=== PATIENT | female | born 1985 | race Caucasian/White ===

== ENCOUNTER 2017-09-15 22:08 | Outpatient (CLI) | payer OTHER ==
[~2017-09-15] VITALS: Ht 154.9 cm; Wt 81.8 kg
[~2017-09-15 22:08] MED LIST: PRENTAB26 PO
[2017-09-15 22:47] VITALS: Ht 154.9 cm; Wt 81.8 kg
--- NOTE | 2017-09-15 22:58 | Progress Note ---
Progress Note Date of Service Sep 15, 2017. Progress Note Here at 35 weeks to rule out rupture Amnisure is negative FHT Cat 1 with irregular contractions will d/c home
== END 2017-09-15 23:16 | disposition home or self-care (01) ==
LOC: C.LD 22:08 → C.OPB 22:08
PROVIDERS: ATTEND Obstetrics & Gynecology
DX: O62.9 Abnormality of forces of labor, unspecified (principal); Z3A.35 35 weeks gestation of pregnancy

== ENCOUNTER 2017-10-27 07:57 | Inpatient (IN) | payer OTHER ==
[~2017-10-27] VITALS: Ht 154.9 cm; Wt 83.2 kg
[2017-10-27 08:55] VITALS: Ht 154.9 cm; Wt 83.2 kg
[2017-10-27] MEDS ORDERED: LACTATED RINGER'S 1000ML 1,000 ML IV PRN (09:12)
[2017-10-27] MEDS ORDERED: LACTATED RINGER'S 1000ML 1,000 ML IV SCH ×2 (09:12→19:47)
--- NOTE | 2017-10-27 09:35 | Progress Note ---
Progress Note Date of Service Oct 27, 2017. Progress Note Admit Note 32 F P2002 at 41.1 weeks admitted for induction of labor for post-dates. GBS is negative. FHT Cat 1. Cervix is finger tip/50/-3/vertex/intact/posterior/ firm. EFW 8.5 lbs. Cervidil 25 mcg placed vaginally for cervical ripening.
[2017-10-27] MEDS ORDERED: MISOPROSTOL 25 MCG TAB PV ONE (09:45)
[2017-10-27 09:52] LABS: HEMATOCRIT 36.1 % (37-47); MEAN CELL VOLUME 95.3 fL (80-100); MEAN CORPUSCULAR HEMOGLOBIN 34.3 pg (25-34); MEAN PLATELET VOLUME 10.2 fL (7.4-10.4); PLATELET COUNT 175 K/uL (130-400); RED CELL DISTRIBUTION WIDTH CV 13.6 % (11.5-14.5); WHITE BLOOD COUNT 9.27 K/uL (4.8-10.8)
[2017-10-27] MEDS ORDERED: BUPIVACAINE 0.25% 30 ML VIAL ONE (17:34)
[2017-10-27] MEDS ORDERED: FENTANYL 2MCG/ML ROPIV 1.25MG/ML 100ML BAG EPI ONE (17:35)
[2017-10-27] MEDS ORDERED: EpHEDrine SULFATE INJ 50 MG/ML AMP ONE (17:35)
[2017-10-27] MEDS ORDERED: FENTANYL CITRATE INJ 50 MCG/1 ML 2 ML VIAL ONE (17:36)
[2017-10-27] MEDS ORDERED: LACTATED RINGER'S 1000ML 500 ML IV PRN (19:08)
[2017-10-27] MEDS ORDERED: NALOXONE HCL INJ 1 MG in SODIUM CHLORIDE 0.9% 1000ML 1,000 ML IV PRN (19:08)
[2017-10-27] MEDS ORDERED: NALOXONE HCL INJ 0.4 MG/1 ML VIAL/CARP IV PRN (19:15)
[2017-10-27] MEDS ORDERED: EpHEDrine SULFATE INJ 50 MG/ML AMP IV PRN (19:15)
[2017-10-27] MEDS ORDERED: ONDANSETRON INJ 2 MG/ML 2 ML VIAL IV PRN (19:15)
[2017-10-27] MEDS ORDERED: NALBUPHINE HCL INJ 10 MG/ML AMP IV PRN (19:15)
[2017-10-27] MEDS ORDERED: DiphenhydrAMINE HCL 50 MG/ML VIAL IV PRN (19:15)
[2017-10-27] MEDS ORDERED: FENTANYL 2MCG/ML ROPIV 1.25MG/ML 100ML BAG EPI PRN (19:15)
[2017-10-27] MEDS ORDERED: OXYTOCIN 30 UNITS/500ML NSS IV ONE (19:35)
--- NOTE | 2017-10-27 19:52 | Vaginal Delivery Summary ---
Vaginal Delivery Summary live male over intact perineum SOHAN with Apgars 7/8 weight pending. Delayed cord clamping followed by cord blood and spontaneous delivery of intact placenta. No tears. EBL 200 ml. Final sponge and instrument count are correct. Mom and baby stable.
[2017-10-27] MEDS ORDERED: OXYTOCIN 30 UNITS/500ML NSS IV PRN (20:00)
[2017-10-27] MEDS ORDERED: BENZOCAINE 20% AER SPR 82.5 GM CAN EXT PRN (20:00)
[2017-10-27] MEDS ORDERED: OXYCODONE/ACETAMINOPHEN 5-325 TAB PO PRN (20:00)
[2017-10-27] MEDS ORDERED: DIPHTHERIA/TETANUS/PERTUSSIS 0.5 ML SYR/VIAL IM. ONE (20:00)
[2017-10-27] MEDS ORDERED: ACETAMINOPHEN 325 MG TAB PO PRN (20:00)
[2017-10-27] MEDS ORDERED: MEASLES, MUMPS & RUBELLA VIRUS VIAL SQ. ONE (20:00)
[2017-10-27] MEDS ORDERED: SUPERCREAM 0.870 % 15GM JAR EXT PRN (20:00)
[2017-10-27] MEDS ORDERED: LANOLIN OINT EXT PRN (20:00)
[2017-10-27] MEDS ORDERED: HYDROCORTISONE ACETATE 25 MG SUPP PR PRN (20:00)
--- NOTE | 2017-10-27 20:45 | Anesthesia Procedure Note ---
Anesthesia Epidural Removal Nt Date & Time Oct 27, 2017 at 20:45 Notes Mental Status: alert / awake / arousable, participated in evaluation Nausea / Vomiting: adequately controlled Pain: adequately controlled Airway Patency, RR, SpO2: stable & adequate BP & HR: stable & adequate Hydration State: stable & adequate Neuraxial Anesthesia: was administered, sensory block is resolving Anesthetic Complications: no major complications apparent, pt satisfied with anesthetic care Epidural: removed without complications, with tip intact
[2017-10-27] MEDS: IBUPROFEN 600 MG TAB PO PRN (22:57)
[2017-10-27 23:00] VITALS: BP 114/71; PULSE 93; TEMP 36.6
[2017-10-28] MEDS: IBUPROFEN 600 MG TAB PO PRN ×4 (03:17→19:57)
[2017-10-28 03:30] VITALS: BP 110/69; PULSE 67; TEMP 36.4
[2017-10-28 06:42] LABS: HEMATOCRIT 33.5 % (37-47); HEMOGLOBIN 11.6 g/dL (12.0-16.0)
[2017-10-28 07:25] VITALS: BP 119/78; PULSE 73; TEMP 36.5; O2SAT 98
--- NOTE | 2017-10-28 08:43 | OB/GYN Progress Note ---
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 Subjective conversation w/ patient, physical exam Ambulation: ambulating normally Voiding: no voiding problems Passing Gas: Yes Diet Tolerance: Regular Diet Lochia: Moderate Feeding Type: Breast Feeding Review of Systems Constitutional: No fever, No chills, No sweats, No weight loss, No weakness, No fatigue, No problem reported Respiratory: No cough, No sputum, No wheezing, No shortness of breath, No dyspnea on exertion, No dyspnea at rest, No hemoptysis, No problem reported Cardiac: No chest pain, No orthopnea, No PND, No edema, No claudication, No palpitations, No problem reported Breast: No see HPI, No breast lump, No change in shape, No nipple discharge, No breast pain, No problem reported Abdomen: No pain, No nausea, No vomiting, No diarrhea, No constipation, No GI bleeding, No problem reported Female : No see HPI, No dysuria, No urinary frequency, No hematuria, No incontinence, No abnormal vaginal bleeding, No vaginal discharge, No problem reported Objective Vital Signs Date Time Temp Pulse Resp B/P (MAP) Pulse Ox O2 Delivery O2 Flow Rate FiO2 10/28/17 03:30 36.4 67 20 110/69 (83) Room Air 10/27/17 23:00 Room Air 10/27/17 23:00 36.6 93 19 114/71 (85) Room Air Physical Exam General Appearance: WELL-APPEARING, WD/WN, NO APPARENT DISTRESS Respiratory/Chest: chest non-tender, lungs clear, normal breath sounds Cardiovascular: regular rate, rhythm, no edema, no gallop Abdomen: normal bowel sounds, non tender, soft Fundus: Firm Extremities: normal range of motion, non-tender, normal inspection Laboratory Results Last 24 Hours Test 10/27/17 09:31 10/28/17 06:14 White Blood Count 9.27 K/uL Red Blood Count 3.79 M/uL Hemoglobin 13.0 g/dL 11.6 g/dL Hematocrit 36.1 % 33.5 % Mean Corpuscular Volume 95.3 fL Mean Corpuscular Hemoglobin 34.3 pg Mean Corpuscular Hemoglobin Concent 36.0 g/dl RDW Standard Deviation 47.0 fL RDW Coefficient of Variation 13.6 % Platelet Count 175 K/uL Mean Platelet Volume 10.2 fL Assessment and Plan Day Number: 1 Continue Routine Care: PPD #1 pt doing well no complaints anticipate disch tomorrow
[2017-10-28] MEDS: DOCUSATE SODIUM 100 MG CAP PO SCH ×2 (09:40→19:56)
[2017-10-28] MEDS: FERROUS SULFATE 325 MG TAB PO SCH (09:40)
[2017-10-28] MEDS: PRENATAL VITAMIN TAB PO SCH (09:40)
[2017-10-28 11:35] VITALS: BP 115/76; PULSE 82; TEMP 36.6
[2017-10-28 16:00] VITALS: BP 119/79; PULSE 82; TEMP 36.9
[2017-10-28] MEDS ORDERED: BISACODYL 5 MG TABEC PO SCH (20:00)
[2017-10-29] MEDS: IBUPROFEN 600 MG TAB PO PRN ×2 (00:29→06:01)
[2017-10-29 01:05] VITALS: BP 122/78; PULSE 73; TEMP 36.5
[2017-10-29] MEDS ORDERED: BISACODYL 10 MG SUPP PR PRN (07:00)
[2017-10-29 08:00] VITALS: BP 119/80; PULSE 69; TEMP 36.3
--- NOTE | 2017-10-29 08:05 | OB/GYN Progress Note ---
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 Patient is seen and examined. She feels well, no complaints. Ambulating without dizziness Voiding without difficulty Tolerating regular diet with out N&V Bleeding is minimal No fever/ chills/ CP/ SOB/ N&V/ Leg pain Breast feeding without problems Discussed contraception with patient in details. Abstinence for 6 weeks, BCP, progestin only pills, Nexplanon, IUD's, Mirena and Pargard. She likes to schedule tubal sterilization at 6 weeks pp visit Date Time Temp Pulse Resp B/P (MAP) Pulse Ox O2 Delivery O2 Flow Rate FiO2 10/29/17 01:05 36.5 73 20 122/78 (93) Room Air 10/29/17 01:05 Room Air 10/28/17 16:00 36.9 82 18 119/79 (92) Room Air 10/28/17 15:20 Room Air 10/28/17 11:35 36.6 82 18 115/76 (89) Room Air Test 09/15/17 22:52 10/27/17 09:31 10/28/17 06:14 Amniotic Fluid Protein NEG White Blood Count 9.27 Red Blood Count 3.79 L Hemoglobin 13.0 11.6 L Hematocrit 36.1 L 33.5 L Mean Corpuscular Volume 95.3 Mean Corpuscular Hemoglobin 34.3 H Mean Corpuscular Hemoglobin Concent 36.0 RDW Standard Deviation 47.0 H RDW Coefficient of Variation 13.6 Platelet Count 175 Mean Platelet Volume 10.2 PE: General: Alert, orientedx3, NAD Abd: soft, NT, fundus firm, below Umbilicus Perineum intact, Lochia rubra minimal Ext; NT, no edema AP: 32 yo s/p , ppd# 2 VSS Afebrile doing well Continue routine care All questions were answered D/C home , f/u in office
--- NOTE | 2017-10-29 08:06 | Discharge Instructions ---
Discharge Instructions Date of Service Oct 29, 2017. Admission Reason for Admission: Induction Discharge Discharge Diagnosis / Problem: Discharge Goals Goal(s): Routine recovery after delivery Medications Continue Dispensed Medications: lansinoh Activity Recommendations Activity Limitations: as noted below ACTIVITY RECOMMENDATIONS: * Gradual return to full activity over the next 2-3 weeks. * No lifting - nothing heavier than baby over the next 2-3 weeks. * Do not engage in vigorous exercise, sexual activity or sports until cleared by your physician. * Do not drive or operate any motorized equipment until cleared by your physician. * You may shower/bathe daily. BREAST CARE: If you are not breast feeding: * Wear a supportive bra 24 hours a day for one to two weeks. * Avoid stimulating your breasts and nipples as much as possible during the first few weeks after delivery. * When taking a shower, have the warm water hit your back, not breasts. * When your breasts feel full, apply ice packs. Usually three to four times a day helps ease the discomfort. * Take a mild pain medication (Tylenol/Motrin) when you are uncomfortable. If breast feeding: * Use breast milk to lubricate nipples. Lansinoh cream may be used for sore nipples. You do not need to remove cream prior to breast feeding. If using a different brand of cream, check the label for directions regarding removal of cream prior to nursing. * Wear a supportive bra. * If having problems with breasts or breast feeding, call a hr business partner consultant or your health care provider. EPISIOTOMY CARE: After delivery, if you have an episiotomy (stitches), the following steps will ease discomfort and aid healing. * For the first 24 hours after delivery, place ice packs next to your episiotomy to help reduce swelling. * After the first 24 hour-period, sitz baths, either portable or in the tub, are suggested. A shower with a shower arm sprayed over the episiotomy may be comforting. * Domitila care should be done after each voiding and bowel movement. Squirt warm water from a plastic bottle over the perineum (region of the body between the anus and urinary opening) and pat dry. * Use Dermoplast to ease discomfort. Shake container. [place] directly over the episiotomy. * Place a Tucks on a clean sanitary pad next to your episiotomy. OVER THE COUNTER MEDICATION: * For discomfort or pain, you may use Acetaminophen (Tylenol), Ibuprofen (Advil ), or Naproxen (Aleve) following the package directions. * For constipation you may use Colace following the package directions. SPECIAL CARE INSTRUCTIONS: When you are discharged from the hospital, it is important for you to follow the instructions listed below: * During the first week at home, you should be able to care for yourself and your baby. In addition, the usual light household activities are encouraged. * Limit your activities to the way you feel. Do not try to clean the house or move furniture. Be sensible. * If you actively engage in sports and have done so up until the time of your delivery, you may resume these activities as soon as you feel able. This may take up to one month or even longer. Use good judgment. * Continue to take your vitamins for at least six weeks after the of your baby. * Your diet need not be limited unless you were on a special diet before your delivery. Breast-feeding mothers need around 2500 calories per day and at least 64-80 ounces of fluid per day (8 to 10 glasses). * You should eat foods from the four major food groups. Crash diets or fad diets are to be avoided. Eating lean meats, fresh fruits and vegetables, low-fat dairy products, high fiber foods and a regular exercise program, will help you get back to your pre- weight without putting your health at risk. * Constipation is sometimes a problem after delivery. Take a mild laxative as needed. If breast feeding, Milk of Magnesia is acceptable to use. You may use a suppository or Fleets enema if no episiotomy. * A daily shower or tub bath is suggested. Be sure to thoroughly and gently dry the perineum. * A bloody vaginal discharge will usually continue until around four weeks post . A small amount of bleeding may continue for as long as six weeks. Vaginal discharge changes from the bright red bleeding after delivery to pink then brownish and finally yellowish-pink before becoming white and disappearing. * Bleeding may increase with activity. Your first period may come in 4-8 weeks. If you are breast feeding, your period may be delayed even longer. * [place] (sex) can begin whenever both you and your partner feel comfortable and do not have any form of genital infection. It is recommended that you wait until after your return appointment and discuss with your physician. If you have questions, please talk to your health care practitioner. A condom should be used to prevent infection and . * Foreplay, gentle intercourse and lubrication is very important the first several times to prevent pain. A water-based lubricant such as K-Y jelly or Astroglide may be used. * Tampons may be used six weeks after delivery. * Douching should be avoided for 6 weeks after delivery. * If you have RH negative blood and your baby is RH positive, you will receive RHOGAM by injection prior to discharge. The nurse will give you a card to keep with you that has the date and place that you received RHOGAM after delivery. * During your care, you had a Rubella screen done to check for the presence of rubella antibodies in your blood. If your test was negative, you will receive a Rubella vaccine prior to discharge. This vaccine may cause a fever, soreness at the injection site and flu-like symptoms. If these symptoms persist, notify your health care practitioner. is not advised for three months after a Rubella vaccine. There is a higher chance of having a baby with defects if conceived within three months of getting the vaccine. * If you were discharged 24 hours from delivery or before 48 hours: Visiting nurses will come to your home 48 hours after discharge to assess you and your baby. The visiting nurse will meet with you while you are in the hospital to arrange a time and get directions to your home. * Verbalizes understanding of car seat law as reviewed with patient nursing. * Car Seat hand-out given and reviewed with patient by nursing. * Shaken baby information reviewed with patient by nursing. Call you doctor if: * Heavy bleeding (saturating several pads an hour) or passing clots the size of your fist. * A fever >101 degrees F (38.3 degrees C) on two occasions four hours apart and/or chills. * Unusual pain in the pelvic or vaginal areas. * "Baby Blues" lasting longer than two weeks. If you have any questions or concerns, call your health care practitioner at . FOLLOW-UP VISIT: * Please call the office at to schedule a 6 week examination. It is important you keep this appointment. * It is important for you to make arrangements for either yearly or twice yearly check-ups thereafter. . Current Hospital Diet Patient's current hospital diet: Regular OB Diet Discharge Diet Recommended Diet: Regular Diet Pending Studies Studies pending at discharge: no Medical Emergencies . Who to Call and When: Medical Emergencies: If at any time you feel your situation is an emergency, please call 911 immediately. . Non-Emergent Contact Non-Emergency issues call your: Specialist Call Non-Emergent contact if: temperature is above 100.5, your pain is not controlled, your pain is worsening . . "Provider Documentation" section prepared by Etienne Jimenez. . VTE Core Measure Inpt VTE Proph given/why not?: Treatment not indicated
[2017-10-29] MEDS: PRENATAL VITAMIN TAB PO SCH (08:27)
[2017-10-29] MEDS: FERROUS SULFATE 325 MG TAB PO SCH (08:27)
[2017-10-29] MEDS: DOCUSATE SODIUM 100 MG CAP PO SCH (08:27)
[2017-10-29 11:23] VITALS: BP_DIAS 80; PULSE 69; TEMP 36.3
== END 2017-10-29 12:25 | disposition home or self-care (01) | DRG 775 ==
LOC: C.LD 07:57 → C.OBG 22:30
PROVIDERS: ADMIT Obstetrics & Gynecology; ATTEND Obstetrics & Gynecology
PROC: 10E0XZZ Delivery of Products of Conception, External Approach (ICD-10-PCS; principal; 2017-10-27)
PROC: 3E0P7GC Introduction of Other Therapeutic Substance into Female Reproductive, Via Natural or Artificial Opening (ICD-10-PCS; principal; 2017-10-27)
DX: O48.0 Post-term pregnancy (principal); Z3A.41 41 weeks gestation of pregnancy; Z37.0 Single live birth

== ENCOUNTER 2018-01-19 21:25 | Emergency (ER) | payer OTHER ==
[~2018-01-19] VITALS: Ht 165.1 cm; Wt 71.0 kg
[2018-01-19] MEDS ORDERED: KETOROLAC TROMETHAMINE 30 MG/ML VIAL IV STA (22:19)
[2018-01-19] MEDS ORDERED: SODIUM CHLORIDE 0.9% 1000ML 1,000 ML IV STA (22:19)
[2018-01-19] MEDS ORDERED: DiphenhydrAMINE HCL 50 MG/ML VIAL IV STA (22:19)
[2018-01-19] MEDS ORDERED: ONDANSETRON INJ 2 MG/ML 2 ML VIAL IV STA (22:19)
[2018-01-19] MEDS ORDERED: MAGNESIUM SULFATE 1GM / D5W 1 GM BAG IV STA ×2 (23:10→23:23)
[2018-01-19 23:37] LABS: BASO % 0.4 %; BASO ABS # 0.03 K/uL (0-0.2); EOS % 2.5 %; EOS ABS # 0.17 K/uL (0-0.5); HEMOGLOBIN 13.4 g/dL (12.0-16.0); IG# 0.02 K/uL (0.00-0.02); LYMPH % 47.2 %; LYMPH ABS # 3.26 K/uL (1.2-3.4); MEAN CELL VOLUME 89.8 fL (80-100); MEAN CORPUSCULAR HEMOGLOBIN 32.5 pg (25-34); MEAN CORPUSCULAR HGB CONC 36.2 g/dl (32-36); MEAN PLATELET VOLUME 9.4 fL (7.4-10.4); MONO % 5.4 %; MONO ABS # 0.37 K/uL (0.11-0.59); NEUT % 44.2 %; NEUT ABS # 3.05 K/uL (1.4-6.5); PLATELET COUNT 234 K/uL (130-400); POTASSIUM 3.6 mmol/L (3.5-5.1); RED CELL DISTRIBUTION WIDTH CV 12.3 % (11.5-14.5); RED CELL DISTRIBUTION WIDTH SD 39.6 fL (36.4-46.3); TOTAL PROTEIN 7.7 gm/dl (6.4-8.2)
[2018-01-19 23:42] VITALS: O2SAT 97
[2018-01-19 23:45] VITALS: Ht 165.1 cm; Wt 71.0 kg
[2018-01-19 23:50] LABS: ALBUMIN 4.2 gm/dl (3.4-5.0); CALCIUM 9.3 mg/dl (8.5-10.1); CREATININE 0.81 mg/dl (0.60-1.20)
[2018-01-20] MEDS ORDERED: DEXAMETHASONE INJ 10 MG in SYRINGE 0 ML IV STA (00:11)
--- NOTE | 2018-01-20 00:22 | EMERGENCY ROOM VISIT NOTE ---
History Report prepared by Андрей: Beckie Mackey Under the Supervision of: Dr. Kel Owens M.D. First contact with patient: 22:16 Chief Complaint: NEURO SYMPTOMS Stated Complaint: ODD SENSATION IN HEAD Nursing Triage Summary: pt states it ffeels like my head is asleep or that theres icy hot on the left top part of my head. ambulates independently no difficulty with speech no fail droop no vision changes History of Present Illness The patient is a 33 year old female who presents to the Emergency Room with complaints of a persistent headache that began earlier today. She reports that all day, the top of her head has felt numb, noting it felt like she had Icy Hot on her head. The patient states that she has a history of ice pick migraines, noting that she has not seen a neurologist in years and that this headache does not feel anything like that. She denies any abdominal pain or vaginal discharge. The patient notes that she had a baby 3 months ago, noting she did not take anything to relieve her symptoms because she currently breastfeeds. She reports that there might be a chance that she could be because she is sexually active. The patient notes that a couple of days she woke up with a popped eye vessel, noting it was unusual for her. Source of History: patient Onset: earlier today Position: head Quality: other (headache) Timing: other (persistent) Associated Symptoms: No abdominal pain Note: Associated symptoms: top of head felt numb. Patient denies: vaginal discharge. Review of Systems See HPI for pertinent positives & negatives. A total of 10 systems reviewed and were otherwise negative. Past Medical & Surgical Medical Problems: (1) Migraine (2) post dates induction (3) post dates induction 41.1 weeks (4) Post-dates Family History Diabetes mellitus Hypertension Social History Smoking Status: Never Smoker Marital Status: Housing Status: lives with family Occupation Status: unemployed Current/Historical Medications Scheduled Multivit/Min/Iron/Fol Ac/Pren ( Vitamin), 1 TAB PO DAILY Allergies Coded Allergies: Prochlorperazine (Unverified Allergy, Mild, 09/15/17) Rizatriptan (Verified Allergy, Unknown, [place] IN [place], 09/15/17) Physical Exam Vital Signs Date Time Temp Pulse Resp B/P (MAP) Pulse Ox O2 Delivery O2 Flow Rate FiO2 01/20/18 02:38 59 18 103/65 97 Room Air 01/20/18 01:34 36.8 66 18 120/73 97 Room Air 01/20/18 00:26 36.8 97 18 119/69 97 Room Air 116/74 120/73 01/19/18 23:52 61 01/19/18 23:45 36.8 95 22 126/57 97 Room Air 01/19/18 23:42 97 Room Air 01/19/18 23:42 97 Room Air Physical Exam GENERAL: Awake, alert, well-appearing, in no acute distress HENT: Normocephalic, atraumatic. Oropharynx unremarkable. EYES: Normal conjunctiva. Sclera non-icteric. NECK: Supple. No nuchal rigidity. FROM. No JVD. RESPIRATORY: Clear to auscultation. CARDIAC: Regular rate, normal rhythm. Extremities warm and well perfused. Pulses equal. ABDOMEN: Soft, non-distended. No tenderness to palpation. No rebound or guarding. No masses. RECTAL: Deferred. MUSCULOSKELETAL: Chest examination reveals no tenderness. The back is symmetrical on inspection without obvious abnormality. There is no CVA tenderness to palpation. No joint edema. LOWER EXTREMITIES: Calves are equal size bilaterally and non-tender. No edema. No discoloration. NEURO: No evidence of meningitis or encephalitis on exam. Normal sensorium. No sensory or motor deficits noted. SKIN: No rash or jaundice noted. Medical Decision & Procedures ER Provider Diagnostic Interpretation: Radiology results as stated below per my review and radiologist interpretation: CT HEAD: No acute infarct, hemorrhage, mass or edema. No acute osseous abnormality. Sinuses are patent. Laboratory Results 01/19/18 22:40 Red Blood Count 4.12, Mean Corpuscular Volume 89.8, Mean Corpuscular Hemoglobin 32.5, Mean Corpuscular Hemoglobin Concent 36.2, Mean Platelet Volume 9.4, Neutrophils (%) (Auto) 44.2, Lymphocytes (%) (Auto) 47.2, Monocytes (%) (Auto) 5.4, Eosinophils (%) (Auto) 2.5, Basophils (%) (Auto) 0.4, Neutrophils # (Auto) 3.05, Lymphocytes # (Auto) 3.26, Monocytes # (Auto) 0.37, Eosinophils # (Auto) 0.17, Basophils # (Auto) 0.03 01/19/18 22:40 Test 01/19/18 22:40 01/20/18 00:34 White Blood Count 6.90 K/uL (4.8-10.8) Red Blood Count 4.12 M/uL (4.2-5.4) Hemoglobin 13.4 g/dL (12.0-16.0) Hematocrit 37.0 % (37-47) Mean Corpuscular Volume 89.8 fL (80-100) Mean Corpuscular Hemoglobin 32.5 pg (25-34) Mean Corpuscular Hemoglobin Concent 36.2 g/dl (32-36) Platelet Count 234 K/uL (130-400) Mean Platelet Volume 9.4 fL (7.4-10.4) Neutrophils (%) (Auto) 44.2 % Lymphocytes (%) (Auto) 47.2 % Monocytes (%) (Auto) 5.4 % Eosinophils (%) (Auto) 2.5 % Basophils (%) (Auto) 0.4 % Neutrophils # (Auto) 3.05 K/uL (1.4-6.5) Lymphocytes # (Auto) 3.26 K/uL (1.2-3.4) Monocytes # (Auto) 0.37 K/uL (0.11-0.59) Eosinophils # (Auto) 0.17 K/uL (0-0.5) Basophils # (Auto) 0.03 K/uL (0-0.2) RDW Standard Deviation 39.6 fL (36.4-46.3) RDW Coefficient of Variation 12.3 % (11.5-14.5) Immature Granulocyte % (Auto) 0.3 % Immature Granulocyte # (Auto) 0.02 K/uL (0.00-0.02) Anion Gap 6.0 mmol/L (3-11) Est Creatinine Clear Calc Drug Dose 99.4 ml/min Estimated GFR () 112.2 Estimated GFR (Non- 96.8 BUN/Creatinine Ratio 18.9 (10-20) Calcium Level 9.3 mg/dl (8.5-10.1) Total Bilirubin 0.5 mg/dl (0.2-1) Direct Bilirubin 0.1 mg/dl (0-0.2) Aspartate Amino Transf (AST/SGOT) 37 U/L (15-37) Alanine Aminotransferase (ALT/SGPT) 77 U/L (12-78) Alkaline Phosphatase 114 U/L (45-117) Total Protein 7.7 gm/dl (6.4-8.2) Albumin 4.2 gm/dl (3.4-5.0) Thyroid Stimulating Hormone (TSH) 2.480 uIu/ml (0.300-4.500) Human Chorionic Gonadotropin, Qual NEG (NEG) Urine Color YELLOW Urine Appearance CLEAR (CLEAR) Urine pH 6.5 (4.5-7.5) Urine Specific [place] 1.008 (1.000-1.030) Urine Protein NEG (NEG) Urine Glucose (UA) NEG (NEG) Urine Ketones NEG (NEG) Urine Occult Blood NEG (NEG) Urine Nitrite NEG (NEG) Urine Bilirubin NEG (NEG) Urine Urobilinogen NEG (NEG) Urine Leukocyte Esterase NEG (NEG) Urine Test NEG (NEG) Labs reviewed by ED physician. Medications Administered Medications (Trade) Dose Ordered Sig/George Route Start Time Stop Time Status Last Admin Dose Admin Magnesium Sulfate (Magnesium Sulfate) 1 gm NOW STAT IV 01/19/18 23:10 01/19/18 23:11 DC 01/19/18 23:23 1 GM Magnesium Sulfate (Magnesium Sulfate) 1 gm NOW STAT IV 01/19/18 23:23 01/19/18 23:24 DC 01/20/18 00:38 1 GM Dexamethasone Sodium Phosphate 10 mg/Syringe 2.5 ml @ 1 mls/min NOW STAT IV 01/20/18 00:11 01/20/18 00:13 DC 01/20/18 00:46 1 MLS/MIN ECG Per My Interpretation Indication: weakness Rate (beats per minute): 68 Rhythm: normal sinus Findings: no ectopy, other (No ST elevation or depression, normal axis) ED Course 2143: Past medical records reviewed. The patient was evaluated in room B3. A complete history and physical examination was performed. 2219: Ordered Benadryl Inj 50mg IV, Zofran Inj 4mg IV, Toradol Inj 30mg IV, and Sodium Chloride 1000ml @ 999 mls/hr IV. 2310: I reevaluated the patient, who states she is feeling better. Ordered Magnesium Sulfate 1gm IV. 2323: Ordered Magnesium Sulfate 1gm IV. 0011: Ordered Dexamethasone Sodium Phosphate 10mg/Syringe 2.5ml @ 1mls/min IV. 0012: I reevaluated the patient, who states that she is feeling the same as she was during the last reevaluation. Medical Decision Differential diagnosis: Etiologies such as migraine headache, meningitis, sinusitis, CO exposure, ICH, SAH, infection, tumor, headache, sinus thrombosis, arterial dissection, as well as others were entertained. This is a 33-year-old female who presents emergency department who presents the emergency department during a period of high volume and high acuity during an unscheduled [facility] downtime complaining of left-sided head pain. The patient does not have any rash or evidence of meningitis or encephalitis on examination. Based on the fact that the patient is only suffering from pain on one side I felt that this may be an atypical migraine and therefore treated the patient as such. Patient is breast-feeding and we discussed the medication uses before the patient was given them. One-time dose of Toradol magnesium Compazine and Benadryl should be fine for breast-feeding. However they did not have any relief in her symptoms. Due to the us extended period of time it took to achieve laboratory work as well as imaging studies of the head the patient at this point wished to leave for follow-up with her primary care physician. I feel that this is reasonable she is afebrile does not have an elevation in her white blood cell count and has no evidence of meningitis or encephalitis on examination. Patient family were in agreement with the treatment plan. Medication Reconcilliation Current Medication List: was personally reviewed by me Blood Pressure Screening Patient's blood pressure: Normal blood pressure Blood pressure disposition: Did not require urgent referral Impression Primary Impression: Headache Scribe Attestation The scribe's documentation has been prepared under my direction and personally reviewed by me in its entirety. I confirm that the note above accurately reflects all work, treatment, procedures, and medical decision making performed by me. Departure Information Dispostion Home / Self-Care Referrals Lorrie Polanco PA-C (PCP) Forms HOME CARE DOCUMENTATION FORM, IMPORTANT VISIT INFORMATION, WORK / SCHOOL INSTRUCTIONS Patient Instructions My [facility] Problem Qualifiers Primary Impression: Headache Headache type: unspecified Headache chronicity pattern: unspecified pattern Intractability: not intractable Qualified Codes: R51 - Headache
[2018-01-20] MEDS ORDERED: DEXAMETHASONE **PF** INJ 10 MG/ML VIAL ONE (00:39)
[2018-01-20 01:34] VITALS: TEMP 36.8
[2018-01-20 02:38] VITALS: BP 103/65; PULSE 59; O2SAT 97
--- NOTE | 2018-01-20 06:25 | DIAGNOSTIC IMAGING REPORT ---
HEAD WITHOUT CONTRAST (CT) CT DOSE: 638.56 mGycm HISTORY: Headache Pt c/o left sided headache TECHNIQUE: Multiaxial CT images of the head were performed without the use of intravenous contrast. A dose lowering technique was utilized adhering to the principles of ALARA. Comparison: 07/31/2015 Findings: The paranasal sinuses and mastoid air cells are clear. The calvarium and skull base are intact. The ventricles and sulci are within normal limits. There is no mass, hematoma, midline shift, or acute infarct. Impression: No acute intracranial abnormality. The above report was generated using voice recognition software. It may contain grammatical, syntax or spelling errors. Electronically signed by: Dmitriy Donovan M.D. 01/20/2018 6:24 AM Dictated Date/Time: 01/20/2018 6:22 AM
== END 2018-01-20 02:39 | disposition home or self-care (01) ==
LOC: C.EDB 21:25
DX: R51 Headache (principal); R20.0 Anesthesia of skin; Z79.899 Other long term (current) drug therapy; Z88.8 Allergy status to other drugs, medicaments and biological substances; Z82.49 Family history of ischemic heart disease and other diseases of the circulatory system; Z83.3 Family history of diabetes mellitus

== ENCOUNTER → 2018-01-26 | Outpatient (CLI) | payer OTHER ==
[~2018-01-26] MED LIST changes: +GADAVIST IV PRN
--- NOTE | 2018-01-26 19:44 | DIAGNOSTIC IMAGING REPORT ---
MRI OF THE BRAIN COMBO CLINICAL HISTORY: Headaches. Dizziness. COMPARISON STUDY: CT of the brain dated 01/19/2018. TECHNIQUE: MRI of the brain was performed utilizing various T1 and T2-weighted sequences in the axial, sagittal, and coronal planes. Contrast-enhanced sequences were acquired following the administration of 6.5 cc of Gadavist. FINDINGS: Brain parenchyma: The brain parenchyma is normal in appearance. 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 There is no hemorrhage or mass effect. There is no restricted diffusion to suggest acute ischemia. No enhancing mass lesion is identified on the postcontrast images. Yuan-white matter differentiation is preserved. No extra-axial fluid collection is seen. The cerebellar tonsils are normal in configuration. Ventricles, sulci, and cisterns: Normal in configuration. Pituitary and sella: Unremarkable. Intracranial vasculature: Normal flow voids are maintained at the skull base. Orbits: The bony orbits are grossly intact. Orbital contents are normal in appearance. Sinuses and mastoids: Clear. Calvarium: Unremarkable. Cervical cord: Partially visualized cervical spinal cord is normal in morphology and signal intensity. IMPRESSION: No acute intracranial abnormality. Electronically signed by: Eliceo Hopkins M.D. 01/26/2018 7:43 PM Dictated Date/Time: 01/26/2018 7:40 PM
== END | disposition home or self-care (01) ==
LOC: C.MRI 18:39
PROVIDERS: ATTEND Physician Assistant
DX: R51 Headache (principal); R41.3 Other amnesia; R20.9 Unspecified disturbances of skin sensation